=== PATIENT | female | born 1980 | race Two or more races ===

== ENCOUNTER → 2025-03-01 | Outpatient (CLI) | payer BC, MEDICAID, SELFPAY ==
[2025-03-01 16:49] LABS: Basophils % (Auto) 0 % (0-2.5); Eosinophils # (Auto) 0.1 Thou/mm3 (0.0-0.5); Eosinophils % (Auto) 1 % (0-10); Hematocrit 36.5 % (36.0-46.0); Hemoglobin 12.3 g/dL (12.0-16.0); Immature Granulocytes % (Auto) 0 % (0-0); Immature Granulocytes Auto 0.03 Thou/mm3 (0.00-0.00); Lymphocytes # (Auto) 1.7 Thou/mm3 (1.0-4.8); Lymphocytes % (Auto) 26 % (10-50); Mean Corpuscular HGB Conc 33.7 g/dl (31.0-37.0); Mean Corpuscular Hemoglobin 27.9 pg (25.0-35.0); Mean Corpuscular Volume 83 fL (80-100); Monocytes # (Auto) 0.6 Thou/mm3 (0.0-0.8); Monocytes % (Auto) 9 % (0-12); Neutrophils # (Auto) 4.2 Thou/mm3 (1.8-7.7); Neutrophils % (Auto) 63 % (37-80); Nucleated Red Blood Cell % 0 /100 WBC (0); Platelet Count 223 Thou/mm3 (140-440); RDW Standard Deviation 42.5 fL (36.4-46.3); Red Blood Count 4.41 Miln/mm3 (4.00-5.20); White Blood Count 6.7 Thou/mm3 (3.6-11.0)
[2025-03-01 17:24] LABS: Alanine Aminotransferase 101 U/L (10-49); Albumin, Serum 4.6 gm/dL (3.5-5.0); Alkaline Phosphatase 45 U/L (46-116); Anion Gap 11 (7-16); Aspartate Amino Transferase 64 U/L (0-34); BUN/Creatinine Ratio 25 Ratio (12-20); Bilirubin,Direct 0.1 mg/dL (0.0-0.3); Bilirubin,Total 0.5 mg/dL (0.3-1.2); Blood Urea Nitrogen 15 mg/dL (9-23); Calcium 8.4 mg/dL (8.3-10.6); Carbon Dioxide 26.8 mMol/L (20.0-31.0); Cardiac Risk Estimate 4.6 RATIO (3.7-5.6); Chloride 103 mMol/L (98-107); Cholesterol 193 mg/dL (132-200); Creatinine (Component) 0.6 mg/dL (0.6-1.3); Glucose 88 mg/dL (74-106); HDL Cholesterol 42 mg/dL (40-60); LDL Cholesterol,Calculated 110 mg/dL (0-130); Osmolality,Calculated 281 (275-295); Potassium 3.5 mMol/L (3.4-5.1); Sodium 141 mMol/L (136-145); Total Protein 7.1 gm/dL (5.7-8.2); Triglycerides 205 mg/dL (30-150); eGFR > 60 See Note
== END | disposition home or self-care (01) ==
PROVIDERS: PCP Family Medicine; Referring Provider Family Medicine; Visit Provider Family Medicine
DX: E78.5 Hyperlipidemia, unspecified (principal); J30.9 Allergic rhinitis, unspecified; D50.9 Iron deficiency anemia, unspecified
CPT/HCPCS: 36415; 80048; 80061; 80076; 85025

== ENCOUNTER → 2025-05-20 | Outpatient (CLI) | payer BC, MEDICAID, SELFPAY ==
--- NOTE | 2025-05-20 07:15 | XR_ITS ---
Examination: Abdomen sonogram, complete Date and time of exam: May 20, 2025 0726 hours INDICATIONS: Elevated liver function tests on laboratory examination March 01, 2025, intermittent right lower abdominal pain several years. Technique: Multiple real-time grayscale transabdominal sonographic images of the abdomen have been obtained. Findings: Multiple gallbladder polyps, the largest 9 mm Negative for cholelithiasis, negative for cholecystitis Common bile duct 0.4 cm Pancreatic head 2.9 cm Aorta not enlarged Liver 17.1 cm fatty infiltration Normal hepatopedal portal venous flow Patent IVC Right kidney 13.4 cm renal cortex 2.1 cm Left kidney 13.1 cm renal cortex 2.2 cm Spleen 12.3 cm IMPRESSION: Gallbladder polyps Negative for cholelithiasis, negative for cholecystitis Normal common bile duct Mild hepatomegaly no focal liver lesions
== END | disposition home or self-care (01) ==
LOC: CDIM 07:03
PROVIDERS: PCP Family Medicine; Referring Provider Family Medicine; Visit Provider Family Medicine
DX: K82.4 Cholesterolosis of gallbladder (principal); R16.0 Hepatomegaly, not elsewhere classified
CPT/HCPCS: 76700

== ENCOUNTER → 2025-06-18 | Outpatient (CLI) | payer BC, MEDICAID, SELFPAY ==
[2025-06-18 09:44] LABS: Vitamin D 25 Hydroxy Total 15.8 ng/mL (7.3-40.2)
[2025-06-18 09:52] LABS: Alanine Aminotransferase 84 U/L (10-49); Albumin, Serum 4.7 gm/dL (3.5-5.0); Alkaline Phosphatase 45 U/L (46-116); Aspartate Amino Transferase 51 U/L (0-34); Bilirubin,Direct < 0.1 mg/dL (0.0-0.3); Bilirubin,Total 0.4 mg/dL (0.3-1.2); Cardiac Risk Estimate 4.1 RATIO (3.7-5.6); Cholesterol 201 mg/dL (132-200); HDL Cholesterol 49 mg/dL (40-60); LDL Cholesterol,Calculated 105 mg/dL (0-130); Total Protein 7.0 gm/dL (5.7-8.2); Triglycerides 233 mg/dL (30-150)
== END | disposition home or self-care (01) ==
PROVIDERS: PCP Family Medicine; Referring Provider Family Medicine; Visit Provider Family Medicine
DX: E55.9 Vitamin D deficiency, unspecified (principal); E78.5 Hyperlipidemia, unspecified; R10.11 Right upper quadrant pain
CPT/HCPCS: 36415; 80061; 80076; 82306

== ENCOUNTER → 2025-09-25 | Outpatient (CLI) | payer BC, MEDICAID, SELFPAY ==
[2025-09-25 11:55] LABS: Alanine Aminotransferase 59 U/L (10-49); Albumin, Serum 5.0 gm/dL (3.5-5.0); Alkaline Phosphatase 50 U/L (46-116); Aspartate Amino Transferase 23 U/L (0-34); Bilirubin,Direct < 0.1 mg/dL (0.0-0.3); Bilirubin,Total 0.3 mg/dL (0.3-1.2); Cardiac Risk Estimate 6.0 RATIO (3.7-5.6); Cholesterol 234 mg/dL (132-200); HDL Cholesterol 39 mg/dL (40-60); Total Protein 7.4 gm/dL (5.7-8.2); Triglycerides 477 mg/dL (30-150)
== END | disposition home or self-care (01) ==
LOC: COPL 09:41
PROVIDERS: PCP Family Medicine; Referring Provider Family Medicine; Visit Provider Family Medicine
DX: E78.1 Pure hyperglyceridemia (principal)
CPT/HCPCS: 36415; 80061; 80076